=== PATIENT | female | born 2000 | race Caucasian/White ===

== ENCOUNTER 2019-01-22 05:05 | Emergency (ER) | payer OTHER ==
[~2019-01-22] VITALS: Ht 165.1 cm; Wt 65.9 kg
[2019-01-22] MEDS ORDERED: BCP (05:11)
[2019-01-22 05:30] LABS: HCG UR SG 1.031 (1.003-1.030)
[2019-01-22 05:32] LABS: CULTURE INDICATED? YES; MICROSCOPIC INDICATED
--- NOTE | 2019-01-22 06:14 | NUR ---
Assist RN: patient discharged with prescription and instruction. verbalized understanding.
[2019-01-22 06:15] VITALS: BP 121/68
== END 2019-01-22 06:17 | disposition home or self-care (01) ==
LOC: ED 05:38
DX: N30.00 Acute cystitis without hematuria (principal)
CPT/HCPCS: 81001; 81025; 87086; 99283

== ENCOUNTER 2019-01-28 21:27 | Emergency (ER) | payer OTHER ==
[~2019-01-28] VITALS: Ht 165.1 cm; Wt 64.1 kg
[~2019-01-28 21:27] MED LIST: BCP
[2019-01-28] MEDS ORDERED: ONDANSETRON 2MG/ML, 2ML IVPush ONE (22:00)
[2019-01-28] MEDS ORDERED: SODIUM CHLORIDE 0.9% 1,000ML IVBOLUS ONE (22:00)
[2019-01-28 22:08] LABS: MEAN CORPUSCULAR HEMOGLOBIN 32.1 pg (27.0-34.8); MEAN CORPUSCULAR HGB CONC 33.2 g/dL (32.4-35.8); MEAN CORPUSCULAR VOLUME 96.8 fL (80-100); MEAN PLATELET VOLUME 9.7 fL (7.4-10.4); PLATELET COUNT 276 x10^3/uL (130-400); RED BLOOD COUNT 4.61 x10^6/uL (3.82-5.3); RED CELL DISTRIBUTION WIDTH 13.7 % (9.6-15.2)
[2019-01-28 22:18] LABS: ALANINE AMINOTRANSFERASE 24 U/L (12-78); ALBUMIN 3.2 g/dL (3.4-5.0); ANION GAP 4 mmol/L (5-15); CALCIUM 8.5 mg/dL (8.5-10.1); CHLORIDE 111 mmol/L (98-107); CREATININE 0.78 mg/dL (0.55-1.02)
[2019-01-28 22:21] LABS: ALKALINE PHOSPHATASE 67 U/L (45-117); BILIRUBIN,TOTAL 0.1 mg/dL (0.2-1.0); TOTAL PROTEIN 7.5 g/dL (6.4-8.2)
[2019-01-28 22:33] LABS: BASOPHILS # (AUTO) 0.04 x10^3/uL (0-0.3); BASOPHILS % (AUTO) 0 % (0-1); EOSINOPHILS # (AUTO) 0.26 x10^3/uL (0-0.8); EOSINOPHILS % (AUTO) 2 % (1-7); LYMPHOCYTES % (AUTO) 25 % (22-44); MD SCAN; MONOCYTES # (AUTO) 1.82 x10^3/uL (0-1.4); MONOCYTES % (AUTO) 12 % (2-9); NEUTROPHILS # (AUTO) 8.87 x10^3/uL (1.8-8.0); NEUTROPHILS % (AUTO) 61 % (42-75)
--- NOTE | 2019-01-28 22:33 | NUR ---
PT WITH N/V/D, FLANK PAIN, BLADDER PAIN, URINARY FREQUENCY THAT STARTED ON 01/26 AFTER 7 DAYS OF ABX FOR UTI/POSSIBLE PYLO. PT PROVIDED BSC FOR STOOL SAMPLE COLLECTION. PT STATES SHE DOES NOT NEED TO STOOL AT THIS TIME. PT WITH NO ACUTE DISTRESS.
[2019-01-28 22:35] LABS: MICROSCOPIC AUTO
[2019-01-28 22:36] LABS: CULTURE INDICATED? NO
[2019-01-28] MEDS ORDERED: ONDANSETRON 2MG/ML, 2ML ONE (22:44)
[2019-01-28] MEDS ORDERED: OMNIPAQUE 350 MG/ML, 100ML BOTTLE ONE (23:46)
[2019-01-28 23:53] VITALS: BP 114/75
[2019-01-29] MEDS ORDERED: ACETAMINOPHEN 500 MG TABLET ONE (00:16)
[2019-01-29] MEDS ORDERED: ACETAMINOPHEN 500 MG TABLET PO ONE (00:30)
[2019-01-29 00:39] LABS: CLOSTRIDIUM DIFFICILE ANTIGEN POSITIVE; CLOSTRIDIUM DIFFICILE TOXIN NEGATIVE (Negative)
[2019-01-29] MEDS ORDERED: metroNIDAZOLE 500 MG TABLET PO ONE (01:30)
== END 2019-01-29 01:40 | disposition home or self-care (01) ==
LOC: ED 21:45
DX: A04.9 Bacterial intestinal infection, unspecified (principal); E86.0 Dehydration
CPT/HCPCS: 36415; 74177; 80053; 81001; 83690; 84703; 85025; 87324; 87493; 96361; 96374; 99284; J2405; J7030; Q9967

== ENCOUNTER 2019-03-25 17:21 | Emergency (ER) | payer OTHER ==
[~2019-03-25] VITALS: Ht 165.1 cm; Wt 61.6 kg
[2019-03-25 17:24] VITALS: BP 107/77
[2019-03-25 18:09] LABS: BASOPHILS # (AUTO) 0.02 x10^3/uL (0-0.3); BASOPHILS % (AUTO) 0 % (0-1); EOSINOPHILS # (AUTO) 0.04 x10^3/uL (0-0.8); EOSINOPHILS % (AUTO) 1 % (1-7); LYMPHOCYTES # (AUTO) 1.87 x10^3/uL (1-6.1); LYMPHOCYTES % (AUTO) 22 % (22-44); MD NO; MEAN CORPUSCULAR HEMOGLOBIN 31.9 pg (27.0-34.8); MEAN CORPUSCULAR HGB CONC 33.5 g/dL (32.4-35.8); MEAN CORPUSCULAR VOLUME 95.3 fL (80-100); MEAN PLATELET VOLUME 9.9 fL (7.4-10.4); MONOCYTES # (AUTO) 0.62 x10^3/uL (0-1.4); MONOCYTES % (AUTO) 7 % (2-9); NEUTROPHILS # (AUTO) 5.85 x10^3/uL (1.8-8.0); NEUTROPHILS % (AUTO) 70 % (42-75); PLATELET COUNT 301 x10^3/uL (130-400); RED BLOOD COUNT 4.62 x10^6/uL (3.82-5.3); RED CELL DISTRIBUTION WIDTH 13.7 % (9.6-15.2)
[2019-03-25 18:14] LABS: MICROSCOPIC NOT IND
[2019-03-25 18:17] LABS: ALBUMIN 3.8 g/dL (3.4-5.0); ANION GAP 8 mmol/L (5-15); CALCIUM 9.1 mg/dL (8.5-10.1); CHLORIDE 111 mmol/L (98-107); CREATININE 0.67 mg/dL (0.55-1.02)
[2019-03-25 18:17] LABS: CULTURE INDICATED? NO
--- NOTE | 2019-03-25 18:26 | NUR ---
PT HAS CO DYSURIA, VAGINAL DISCHARGE, BLADDER PAIN FOR 2 DAYS. RECEIVED ABX, THAT HASNT WORKED FOR UTI FROM [facility]
--- NOTE | 2019-03-25 18:34 | NUR ---
PELVIC EXAM COMPLETE, LABS SENT
[2019-03-25 18:50] LABS: CLUE CELLS PRESENT (NONE SEEN); WET PREP WBCS MODERATE (FEW)
== END 2019-03-25 19:32 ==
LOC: ED 18:16
DX: N76.0 Acute vaginitis (principal)
CPT/HCPCS: 36415; 80048; 81003; 82040; 85025; 87210; 87491; 87591; 87808; 99283